=== PATIENT | female | born 1995 | race Caucasian/White ===

== ENCOUNTER 2019-06-05 17:34 | Emergency (ER) | payer SELFPAY ==
[2019-06-05] MEDS ORDERED: PROMETHAZINE HCL 25 MG TABLET PO ONE (18:14)
[2019-06-05] MEDS ORDERED: KETOROLAC TROMETHAMINE 60 MG/2 ML SDV IM ONE (18:14)
--- NOTE | 2019-06-05 18:17 | ER Document Report ---
ED Medical Screen (RME) - General Chief Complaint: Possible Kidney Stone Stated Complaint: BACK PAIN,SYNCOPE Time Seen by Provider: 06/05/19 18:12 Mode of Arrival: Wheelchair Information source: Patient Notes: 23-year-old female with history of kidney stones presents emergency department with right flank pain for the last couple days. Reports increased pain today. Has not taken anything for the pain at home. Complains of nausea vomiting. No complaints of pain with void. Patient is in a lot of pain. Requesting to lay down on the floor. Last menstrual period was 2 weeks ago. I have greeted and performed a rapid initial assessment of this patient. A comprehensive ED assessment and evaluation of the patient, analysis of test results and completion of the medical decision making process will be conducted by additional ED providers. Dictation of this chart was performed using voice recognition software; therefore, there may be some unintended grammatical errors. TRAVEL OUTSIDE OF THE [place] IN LAST 30 DAYS: No - Related Data Allergies/Adverse Reactions: sulfamethoxazole [From Bactrim] Allergy (Verified 06/05/19 18:11) trimethoprim [From Bactrim] Allergy (Verified 06/05/19 18:11) Past Medical History - Social History Chew tobacco use (# tins/day): No Frequency of alcohol use: None Drug Abuse: None Physical Exam - Vital signs Vitals: Temp Pulse Resp BP Pulse Ox 98.2 F 78 20 115/81 99 06/05/19 17:40 06/05/19 17:40 06/05/19 17:40 06/05/19 17:40 06/05/19 17:40 Course - Vital Signs Vital signs: Temp Pulse Resp BP Pulse Ox 98.2 F 78 20 115/81 99 06/05/19 17:40 06/05/19 17:40 06/05/19 17:40 06/05/19 17:40 06/05/19 17:40
--- NOTE | 2019-06-05 19:13 | ER Document Report ---
ED General - General Chief Complaint: Possible Kidney Stone Stated Complaint: BACK PAIN,SYNCOPE Time Seen by Provider: 06/05/19 18:12 Mode of Arrival: Wheelchair TRAVEL OUTSIDE OF THE [place] IN LAST 30 DAYS: No - HPI Notes: Patient was evaluated by the [facility] provider prior to my evaluation. Studies / interventions have been ordered by this provider and may still be pending. 21-year-old female with history of remote renal colic. Describes onset today suddenly of right flank pain rating around her right lower abdomen. Moderate intensity, sharp, some urinary difficulty and pain. Throbbing, moderate intensity. Worse with motion. No injury. No fever. No history of prior pyelonephritis. No other modifying factors, no other associated symptoms, no other provocative or palliative factors. - Related Data Allergies/Adverse Reactions: sulfamethoxazole [From Bactrim] Allergy (Verified 06/05/19 18:11) trimethoprim [From Bactrim] Allergy (Verified 06/05/19 18:11) Past Medical History - General Information source: Patient - Social History Smoking Status: Never Smoker Chew tobacco use (# tins/day): No Frequency of alcohol use: None Drug Abuse: None Family History: Reviewed & Not Pertinent Patient has suicidal ideation: No Patient has homicidal ideation: No - Medical History Notes: Stated prior history of renal colic Review of Systems - Review of Systems Notes: Review of systems as in the history of present illness, otherwise negative x 10 systems. Physical Exam - Vital signs Vitals: Temp Pulse Resp BP Pulse Ox 98.2 F 78 20 115/81 99 06/05/19 17:40 06/05/19 17:40 06/05/19 17:40 06/05/19 17:40 06/05/19 17:40 - Notes Notes: General: Well developed . HEENT: Normocephalic, atraumatic. Pupils equal round reactive to light. No JVD. Chest: No trauma. Respiratory: Good air exchange, normal excursion. Cardiac: Regular rhythm. No murmurs or gallops. Abdomen: Soft, benign. Nondistended. Nontender. Back: No asymmetry or gross abnormality. CVAT Motor: Grossly normal power and tone. Neurologic: Alert, nonfocal. Cranial nerves II-12 are intact. Sensation intact. Vascular: Well perfused. Normal peripheral pulses. Skin: No petechiae or purpura. Course - Re-evaluation Re-evalutation: 06/05/19 19:12 23-year-old female presents with right-sided flank pain, benign abdominal exam. Strong pretest probability for renal colic. Less likely pyelonephritis. Doubt appendicitis or abdominal emergency. We will proceed with laboratory evaluation, x-ray, CT is already been ordered by [facility] doc, reevaluate. Pain is been treated with IV ketorolac and Phenergan. 06/05/19 22:18 Labs reviewed, CBC unremarkable, chemistries unremarkable, urine unremarkable. CT imaging shows no acute stone or abnormality. Urinalysis shows no evidence of infection. Etiology the patient's symptoms is unclear, however, may be related to underlying occult strain. She given a prescription for naproxen, outpatient follow-up. - Vital Signs Vital signs: Temp Pulse Resp BP Pulse Ox 98.2 F 78 20 115/81 99 06/05/19 17:40 06/05/19 17:40 06/05/19 17:40 06/05/19 17:40 06/05/19 17:40 - Laboratory Result Diagrams: 06/05/19 20:00 06/05/19 21:30 Laboratory results interpreted by me: 06/05/19 06/05/19 06/05/19 18:23 20:00 21:30 WBC 12.8 H Lymph % (Auto) 9.8 L Absolute Neuts (auto) 10.8 H Seg Neutrophils % 84.4 H Glucose 119 H Urine Protein 30 H Urine Urobilinogen 4.0 H Discharge - Discharge Clinical Impression: Flank pain Condition: Good Disposition: HOME, SELF-CARE Instructions: Flank Pain ([facility]) Additional Instructions: Follow-up with your regular doctor over the next 24 to 48 hours Prescriptions: Naproxen [Naprosyn] 500 mg PO Q12 PRN #10 tablet PRN Reason:
[2019-06-05 19:44] LABS: AMORPHOUS SEDIMENT,URINE TRACE /HPF; APPEARANCE,URINE CLOUDY; BILIRUBIN,URINE NEGATIVE (NEGATIVE); COLOR,URINE AMBER; GLUCOSE, URINE NEGATIVE (NEGATIVE); KETONES,URINE NEGATIVE (NEGATIVE); LEUKOCYTE ESTERASE,URINE NEGATIVE (NEGATIVE); NITRITE,URINE NEGATIVE (NEGATIVE); PROTEIN,URINE 30 mg/dL (NEGATIVE); URINE SPECIFIC GRAVITY 1.027
[2019-06-05] MEDS ORDERED: MORPHINE SULFATE 10 MG/ML INJ IV ONE (20:09)
[2019-06-05 20:21] LABS: ABSOLUTE BASOPHILS # (AUTO) 0.1 10^3/uL (0.0-0.2); ABSOLUTE LYMPHOCYTES (AUTO) 1.3 10^3/uL (0.5-4.7); ABSOLUTE MONOCYTES (AUTO) 0.6 10^3/uL (0.1-1.4); ABSOLUTE NEUT (AUTO) 10.8 10^3/uL (1.7-8.2); BASOPHILS % (AUTO) 0.5 % (0-2); EOSINOPHILS % (AUTO) 0.3 % (0-6); HEMATOCRIT 36.6 % (36.0-47.0); HEMOGLOBIN 12.4 g/dL (12.0-15.5); LYMPHOCYTES % (AUTO) 9.8 % (13-45); MEAN CORPUSCULAR HEMOGLOBIN 29.7 pg (27.0-33.4); MEAN CORPUSCULAR VOLUME 87 fl (80-97); RED BLOOD COUNT 4.19 10^6/uL (3.72-5.28); RED CELL DISTRIBUTION WIDTH 13.4 % (11.5-14.0); SEGMENTED NEUTROPHILS % (AUTO) 84.4 % (42-78); TOTAL CELLS COUNTED % (AUTO) 100 %; WHITE BLOOD COUNT 12.8 10^3/uL (4.0-10.5)
[2019-06-05] MEDS ORDERED: MORPHINE SULFATE 10 MG/ML INJ IM ONE (20:25)
[2019-06-05 20:44] LABS: PLATELET COUNT 212 10^3/uL (150-450)
--- NOTE | 2019-06-05 20:50 | RADIOLOGY REPORT (SQ) ---
EXAM DESCRIPTION: CT ABDOMEN PELVIS WITHOUT IV CONTRAST COMPLETED DATE/TME: 06/05/2019 18:15 CLINICAL HISTORY: 23 years, Female, right flank pain This exam was performed according to our departmental dose-optimization program which includes automated exposure control, adjustment of the mA and/or kVp according to patient size and/or use of iterative reconstruction technique where applicable. FINDINGS: Visualized lung bases are within normal limits. Liver, pancreas, gallbladder and adrenal glands are within normal limits. Spleen demonstrates calcified granulomas. No hydronephrosis. There is no renal, ureteral or bladder calculus. No dilated loops of bowel to suggest obstruction. Mild amount of stool in the colon. The appendix is normal. No free fluid or free air. Bladder is unremarkable. Gynecologic organs are unremarkable. No abdominal or pelvic lymphadenopathy. Abdominal aorta is within normal limits. IMPRESSION: No evidence for acute appendicitis. No acute urinary obstruction. No evidence for nephrolithiasis.
[2019-06-05 22:01] LABS: ALKALINE PHOSPHATASE 69 U/L (38-126); ANION GAP 8 (5-19); ASPARTATE AMINO TRANSFERASE 27 U/L (14-36); BILIRUBIN,DIRECT 0.1 mg/dL (0.0-0.4); BILIRUBIN,TOTAL 0.4 mg/dL (0.2-1.3); BLOOD UREA NITROGEN 10 mg/dL (7-20); CALCIUM 9.4 mg/dL (8.4-10.2); CARBON DIOXIDE 26 mmol/L (22-30); CHLORIDE 105 mmol/L (98-107); GLUCOSE 119 mg/dL (75-110); POTASSIUM 3.9 mmol/L (3.6-5.0); TOTAL PROTEIN 6.3 g/dL (6.3-8.2)
[2019-06-05 22:49] VITALS: BP 119/59
== END 2019-06-05 22:48 | disposition home or self-care (01) ==
LOC: ER 17:34
DX: R10.9 Unspecified abdominal pain (principal); Z87.442 Personal history of urinary calculi; Z88.1 Allergy status to other antibiotic agents
CPT/HCPCS: 99284; 96374; 96375; 36415; 85025; 81025; 80053; 81001; 74176; J1885; J2270